=== PATIENT | female | born 1940 | race Two or more races ===

== ENCOUNTER 2021-06-28 10:30 | Inpatient (IN) | payer OTHER ==
[2021-06-28 11:41] VITALS: BMI 29.0
[2021-06-28] MEDS ORDERED: CEFTRIAXONE 1 GM in DEXTROSE 5%-WATER - 100 ML IVPB ONE (15:36)
[2021-06-28] MEDS ORDERED: AZITHROMYCIN IVPB 500 MG in DEXTROSE 5%-WATER - 250 ML IVPB ONE (15:37)
[2021-06-28] MEDS ORDERED: AZITHROMYCIN IVPB 500 MG/250 ML BAG IVPB ONE (16:07)
[2021-06-28] MEDS ORDERED: CEFTRIAXONE 1 GM/50 ML BAG ONE (16:07)
[2021-06-28 17:18] LABS: BASO % 0.4 % (0-2.0); HEMATOCRIT 35.6 % (32.4-45.2); HEMOGLOBIN 12.2 GM/dL (10.7-15.3); LYMPH % 30.8 % (8-40); MCH 32.9 pg (25.7-33.7); MCHC 34.2 g/dl (32.0-36.0); MEAN CELL VOLUME 96.1 fl (80-96); MEAN PLT VOLUME 10.5 fl (7.5-11.1); MONO % 9.3 % (3.8-10.2); NEUT % 59.5 % (42.8-82.8); PLATELET COUNT 139 10^3/uL (134-434); RBC 3.71 M/mm3 (3.60-5.2); RDW 12.8 % (11.6-15.6); WHITE BLOOD COUNT 5.3 K/mm3 (4.0-10.0)
[2021-06-28 17:20] LABS: INR 1.14 (0.83-1.09); PROTHROMBIN TIME (PATIENT) 12.8 SEC (9.7-13.0)
[2021-06-28 17:23] LABS: ACTIVATED PTT 26.9 SECONDS (25.2-36.5)
[2021-06-28 17:36] LABS: BLOOD UREA NITROGEN 25.9 mg/dL (7-18); CALCIUM 8.7 mg/dL (8.5-10.1)
[2021-06-28 17:39] LABS: CREATININE 1.5 mg/dL (0.55-1.3)
[2021-06-28 17:41] LABS: BILIRUBIN,TOTAL 1.2 mg/dL (0.2-1); TOT PROT 7.1 g/dl (6.4-8.2)
[2021-06-28 19:58] LABS: EPI CELLS >36 /uL (0-25.1); HYALINE CASTS 60 /uL (0-3.1); URINE APPEARANCE CLOUDY; URINE BACTERIA 7 /uL (0-1359); URINE BILIRUBIN 1+ (NEGATIVE); URINE COLOR DK YELLOW; URINE GLUCOSE (UA) NEGATIVE (NEGATIVE); URINE KETONE TRACE (NEGATIVE); URINE LEUK ESTERASE NEGATIVE (NEGATIVE); URINE NITRITE NEGATIVE (NEGATIVE); URINE PROTEIN 1+ (NEGATIVE); URINE RBC 16 /uL (0-23.9); URINE WBC 42 /uL (0-25.8)
[2021-06-28] MEDS ORDERED: DEXAMETHASONE SOD PHOSPHATE 4 MG/1 ML VIAL IVPUSH ONE (22:55)
[2021-06-28] MEDS ORDERED: DEXAMETHASONE SOD PHOSPHATE 10 MG/1 ML VIAL ONE (23:14)
[2021-06-29] MEDS ORDERED: SODIUM CHLORIDE 250 ML IV STA (04:03)
[2021-06-29] MEDS: HEPARIN NA (PORCINE) 5,000 UNITS/ML 1ML VIAL SQ SCH ×3 (05:53→21:39)
[2021-06-29] MEDS: INSULIN SLIDING SCALE (NOVOLOG) 1 VIAL SQ SCH ×4 (05:59→21:39)
[2021-06-29 07:42] LABS: BASO % 0.1 % (0-2.0); HEMATOCRIT 36.7 % (32.4-45.2); HEMOGLOBIN 12.1 GM/dL (10.7-15.3); LYMPH % 27.3 % (8-40); MCH 31.5 pg (25.7-33.7); MCHC 32.8 g/dl (32.0-36.0); MEAN CELL VOLUME 96.1 fl (80-96); MEAN PLT VOLUME 10.4 fl (7.5-11.1); MONO % 1.8 % (3.8-10.2); NEUT % 70.8 % (42.8-82.8); PLATELET COUNT 134 10^3/uL (134-434); RBC 3.82 M/mm3 (3.60-5.2); RDW 12.6 % (11.6-15.6); WHITE BLOOD COUNT 3.2 K/mm3 (4.0-10.0)
[2021-06-29 08:03] LABS: BLOOD UREA NITROGEN 26.6 mg/dL (7-18); CALCIUM 8.7 mg/dL (8.5-10.1)
[2021-06-29 08:05] LABS: MAGNESIUM 2.2 mg/dL (1.8-2.4)
[2021-06-29 08:07] LABS: CREATININE 1.3 mg/dL (0.55-1.3)
[2021-06-29 08:08] LABS: PHOSPHOROUS 4.9 mg/dL (2.5-4.9)
[2021-06-29] MEDS: DONEPEZIL HCL 5 MG TABLET (FP) PO SCH (10:36)
[2021-06-29] MEDS: amLODIPine BESYLATE 5 MG TABLET (FP) PO SCH (10:36)
[2021-06-29] MEDS: DEXAMETHASONE SOD PHOSPHATE 4 MG/1 ML VIAL IVPUSH SCH (10:36)
[2021-06-29] MEDS: metoPROLOL SUCCINATE 25 MG TAB.SR.24H (FP) PO SCH (10:36)
[2021-06-29] MEDS ORDERED: LACTATED RINGERS SOLUTION 1,000 ML/1,000 ML INFUS.BAG IV SCH (13:30)
[2021-06-29] MEDS ORDERED: REMDESIVIR 200 MG in SODIUM CHLORIDE 250 ML IVPB ONE (14:00)
[2021-06-29] MEDS ORDERED: ACETAMINOPHEN 325 MG TABLET (FP) PO PRN (17:04)
[2021-06-29] MEDS: ATORVASTATIN CA 40 MG TABLET (FP) PO SCH (21:39)
[2021-06-30] MEDS: HEPARIN NA (PORCINE) 5,000 UNITS/ML 1ML VIAL SQ SCH ×3 (05:29→21:58)
[2021-06-30] MEDS: INSULIN SLIDING SCALE (NOVOLOG) 1 VIAL SQ SCH ×4 (06:15→21:59)
[2021-06-30 09:16] LABS: HEMATOCRIT 32.9 % (32.4-45.2); MCHC 33.5 g/dl (32.0-36.0); MEAN CELL VOLUME 95.4 fl (80-96); MEAN PLT VOLUME 10.1 fl (7.5-11.1); PLATELET COUNT 102 10^3/uL (134-434); RBC 3.44 M/mm3 (3.60-5.2); RDW 12.3 % (11.6-15.6); WHITE BLOOD COUNT 5.5 K/mm3 (4.0-10.0)
[2021-06-30] MEDS: amLODIPine BESYLATE 5 MG TABLET (FP) PO SCH (09:30)
[2021-06-30] MEDS: metoPROLOL SUCCINATE 25 MG TAB.SR.24H (FP) PO SCH (09:31)
[2021-06-30] MEDS: DONEPEZIL HCL 5 MG TABLET (FP) PO SCH (09:31)
[2021-06-30] MEDS: DEXAMETHASONE SOD PHOSPHATE 4 MG/1 ML VIAL IVPUSH SCH (09:31)
[2021-06-30 09:36] LABS: CALCIUM 8.3 mg/dL (8.5-10.1)
[2021-06-30 09:38] LABS: BLOOD UREA NITROGEN 30.9 mg/dL (7-18)
[2021-06-30 09:41] LABS: CREATININE 1.1 mg/dL (0.55-1.3); PHOSPHOROUS 2.6 mg/dL (2.5-4.9)
[2021-06-30 09:42] LABS: BILIRUBIN,TOTAL 0.8 mg/dL (0.2-1); TOT PROT 6.3 g/dl (6.4-8.2)
[2021-06-30] MEDS: REMDESIVIR 100 MG in SODIUM CHLORIDE 250 ML IVPB SCH (14:27)
[2021-06-30] MEDS: ATORVASTATIN CA 40 MG TABLET (FP) PO SCH (21:58)
[2021-07-01] MEDS: INSULIN SLIDING SCALE (NOVOLOG) 1 VIAL SQ SCH ×4 (06:00→21:34)
[2021-07-01] MEDS: HEPARIN NA (PORCINE) 5,000 UNITS/ML 1ML VIAL SQ SCH ×3 (06:00→21:30)
[2021-07-01] MEDS: amLODIPine BESYLATE 5 MG TABLET (FP) PO SCH (10:21)
[2021-07-01] MEDS: DEXAMETHASONE SOD PHOSPHATE 4 MG/1 ML VIAL IVPUSH SCH (10:21)
[2021-07-01] MEDS: DONEPEZIL HCL 5 MG TABLET (FP) PO SCH (10:21)
[2021-07-01] MEDS: metoPROLOL SUCCINATE 25 MG TAB.SR.24H (FP) PO SCH (10:21)
[2021-07-01] MEDS: REMDESIVIR 100 MG in SODIUM CHLORIDE 250 ML IVPB SCH (14:15)
[2021-07-01] MEDS: ATORVASTATIN CA 40 MG TABLET (FP) PO SCH (21:30)
[2021-07-02] MEDS: HEPARIN NA (PORCINE) 5,000 UNITS/ML 1ML VIAL SQ SCH ×3 (06:14→21:07)
[2021-07-02] MEDS: INSULIN SLIDING SCALE (NOVOLOG) 1 VIAL SQ SCH ×4 (06:24→21:19)
[2021-07-02] MEDS: DONEPEZIL HCL 5 MG TABLET (FP) PO SCH (10:08)
[2021-07-02] MEDS: DEXAMETHASONE SOD PHOSPHATE 4 MG/1 ML VIAL IVPUSH SCH (10:08)
[2021-07-02] MEDS: amLODIPine BESYLATE 5 MG TABLET (FP) PO SCH (10:08)
[2021-07-02] MEDS: metoPROLOL SUCCINATE 25 MG TAB.SR.24H (FP) PO SCH (10:08)
[2021-07-02] MEDS: REMDESIVIR 100 MG in SODIUM CHLORIDE 250 ML IVPB SCH (14:47)
[2021-07-02] MEDS: ATORVASTATIN CA 40 MG TABLET (FP) PO SCH (21:08)
[2021-07-02 21:57] LABS: BASO % 0.1 % (0-2.0); HEMATOCRIT 36.7 % (32.4-45.2); HEMOGLOBIN 11.9 GM/dL (10.7-15.3); LYMPH % 31.1 % (8-40); MCH 31.2 pg (25.7-33.7); MCHC 32.5 g/dl (32.0-36.0); MEAN PLT VOLUME 10.8 fl (7.5-11.1); MONO % 6.8 % (3.8-10.2); PLATELET COUNT 130 10^3/uL (134-434); RBC 3.82 M/mm3 (3.60-5.2); RDW 12.4 % (11.6-15.6); WHITE BLOOD COUNT 2.4 K/mm3 (4.0-10.0)
[2021-07-02 22:16] LABS: CHLORIDE 104 mmol/L (98-107); SODIUM 135 mmol/L (136-145)
[2021-07-02 22:18] LABS: CALCIUM 7.8 mg/dL (8.5-10.1)
[2021-07-02 22:19] LABS: ALBUMIN 2.6 g/dl (3.4-5.0); ANION GAP 8 MMOL/L (8-16); BLOOD UREA NITROGEN 25.9 mg/dL (7-18); CO2 23 mmol/L (21-32)
[2021-07-02 22:22] LABS: CREATININE 1.2 mg/dL (0.55-1.3); SGOT/AST 29 U/L (15-37); SGPT/ALT 26 U/L (13-61)
[2021-07-02 22:24] LABS: BILIRUBIN,TOTAL 0.4 mg/dL (0.2-1); TOT PROT 6.7 g/dl (6.4-8.2)
[2021-07-02 22:25] LABS: ALK PHOS 74 U/L (45-117)
[2021-07-02 22:40] LABS: GLUCOSE,RANDOM 408 mg/dL (74-106)
[2021-07-02 22:57] LABS: ERYTHROCYTE SEDIMENTATION RATE 36 mm/hr (0-30)
[2021-07-03] MEDS ORDERED: INSULIN (NOVOLOG) ASPART 100 UNITS/ML 10ML VIAL SQ ONE (02:36)
[2021-07-03] MEDS: HEPARIN NA (PORCINE) 5,000 UNITS/ML 1ML VIAL SQ SCH ×2 (06:09→13:45)
[2021-07-03] MEDS: INSULIN SLIDING SCALE (NOVOLOG) 1 VIAL SQ SCH ×2 (06:13→11:51)
[2021-07-03 08:38] LABS: BASO % 0.1 % (0-2.0); HEMATOCRIT 34.3 % (32.4-45.2); HEMOGLOBIN 11.3 GM/dL (10.7-15.3); LYMPH % 46.5 % (8-40); MCH 31.5 pg (25.7-33.7); MCHC 32.9 g/dl (32.0-36.0); MEAN CELL VOLUME 95.6 fl (80-96); MEAN PLT VOLUME 10.5 fl (7.5-11.1); MONO % 9.3 % (3.8-10.2); NEUT % 44.1 % (42.8-82.8); PLATELET COUNT 148 10^3/uL (134-434); RBC 3.58 M/mm3 (3.60-5.2); RDW 12.3 % (11.6-15.6); WHITE BLOOD COUNT 3.5 K/mm3 (4.0-10.0)
[2021-07-03 09:01] LABS: PHOSPHOROUS 3.2 mg/dL (2.5-4.9)
[2021-07-03 09:03] LABS: BILIRUBIN,TOTAL 0.6 mg/dL (0.2-1); TOT PROT 6.4 g/dl (6.4-8.2)
[2021-07-03 09:06] LABS: ALBUMIN 2.8 g/dl (3.4-5.0); BLOOD UREA NITROGEN 20.5 mg/dL (7-18); MAGNESIUM 2.2 mg/dL (1.8-2.4)
[2021-07-03 09:07] LABS: CREATININE 0.9 mg/dL (0.55-1.3)
[2021-07-03 09:32] LABS: ERYTHROCYTE SEDIMENTATION RATE 44 mm/hr (0-30)
[2021-07-03] MEDS: DEXAMETHASONE SOD PHOSPHATE 4 MG/1 ML VIAL IVPUSH SCH (10:35)
[2021-07-03] MEDS: amLODIPine BESYLATE 5 MG TABLET (FP) PO SCH (11:35)
[2021-07-03] MEDS: metoPROLOL SUCCINATE 25 MG TAB.SR.24H (FP) PO SCH (11:35)
[2021-07-03] MEDS: DONEPEZIL HCL 5 MG TABLET (FP) PO SCH (11:36)
[2021-07-03] MEDS: REMDESIVIR 100 MG in SODIUM CHLORIDE 250 ML IVPB SCH (12:42)
[2021-07-03 14:58] VITALS: BP 143/67; PULSE 57; TEMP 98.9
[2021-07-03] MEDS ORDERED: INSULIN (NOVOLOG) ASPART 100 UNITS/ML 10ML VIAL SQ SCH (16:30)
[2021-07-03] MEDS ORDERED: INSULIN (LEVEMIR) 100 UNITS/ML UNITS SQ SCH (22:00)
[2021-07-03] MEDS ORDERED: LOSARTAN POTASSIUM 25 MG TABLET PO SCH (22:00)
== END 2021-07-03 17:49 | disposition home or self-care (01) | DRG 137 ==
LOC: JER 10:30 → JERBED 14:09 → J4S 06-29 02:13
PROVIDERS: ADMIT Hospitalist; ATTEND Internal Medicine
PROC: XW033E5 Introduction of Remdesivir Anti-infective into Peripheral Vein, Percutaneous Approach, New Technology Group 5 (ICD-10-PCS; principal; 2021-06-29)
DX: U07.1 COVID-19 (principal); J12.82 Pneumonia due to coronavirus disease 2019; I10 Essential (primary) hypertension; E11.9 Type 2 diabetes mellitus without complications; G30.9 Alzheimer's disease, unspecified; F02.80 Dementia in other diseases classified elsewhere, unspecified severity, without behavioral disturbance, psychotic disturbance, mood disturbance, and anxiety; N17.9 Acute kidney failure, unspecified; E86.0 Dehydration; R09.02 Hypoxemia
CPT/HCPCS: 36415; 70450-TC; 71045-TC-FY; 72125-TC; 74176-TC; 80048; 80053; 80061; 81003; 82550; 82728; 82962; 83615; 83735; 84100; 84443; 84484; 85025; 85027; 85379; 85610; 85651; 85730; 86140; 87804; 93005; 93010; 93880-TC; 94761; 99285-25; C9399; C9803; J1644; U0003; U0005